=== PATIENT | female | born 1940 | race Caucasian/White ===

== ENCOUNTER → 2017-11-04 | Outpatient (CLI) | payer OTHER ==
[~2017-11-04] MED LIST: AFEDITAB CR30 MG PO; ALOE PO; ARTIFICIAL TEA1 EACH OPHTHALMIC; ASPIRIN81 M2 PO; CO Q-1030 MG PO; CO Q-1050 MG PO; FISH OIL 1,001000 M2 PO; KLOR-CON 88 ME1 PO; LASIX 20 MG TAB20 MG PO; LASIX 40 MG TAB40 M2 PO; LISINOPRIL20 MG PO; NORVASC 5 MG TAB5 MG PO; QUININE SULFAT324 MG PO; TYLENOL325 MG PO; VENTOLIN HFA INH8 GM INH; VITAMIN B COMP1 EACH PO; VITAMIN D1000 UNI1 PO; Vitamin B12 SUBQ; Vitamin D PO; ZIAC 5-6.25 MG1 EACH PO
[2017-11-04 10:30] VITALS: BP 149/44
[2017-11-04 12:30] VITALS: BP 149/39
[2017-11-04 16:52] VITALS: BP 149/39
[2017-11-04 17:30] VITALS: BP 146/50
== END ==
LOC: OPONC 08:21
DX: D50.8 Other iron deficiency anemias (principal)
CPT/HCPCS: 95000; 95001

== ENCOUNTER → 2018-09-21 | Outpatient (CLI) | payer OTHER ==
[2018-09-21 09:40] VITALS: BP 136/68
--- NOTE | 2018-09-21 14:59 | NUR ---
IN FOR INFED INFUSION FOR IRON DEFICIENCY. ADMISSION HISTORY AND ASSESSMENT COMPLETED. IV STARTED IN LEFT HAND AND HAD SOME PAIN WHEN FLUSHING. AFTER READJUSTING IV WAS ABLE TO GIVE TEST DOSE. OBSERVED FOR ONE HOUR WITH NO ADVERSE REACTION NOTED. STARTED FULL DOSE OF INFED AND PATIENT'S IV TOO PAINFUL. REMOVED IV AND IV TEAM PLACED A 20G IV IN LEFT FOREARM. NO FURTHER PAIN WITH NEW IV. TOLERATING INFED WELL.
== END ==
LOC: OPONC 00:18
DX: D50.8 Other iron deficiency anemias (principal)
CPT/HCPCS: 95000; 95001

== ENCOUNTER 2021-07-22 17:13 | Inpatient (IN) | payer OTHER ==
[~2021-07-22] VITALS: Ht 160 cm; Wt 96.4 kg
[2021-07-22 17:16] VITALS: BP 198/77
[2021-07-22 18:48] LABS: HEMATOCRIT 33.1 % (37.0-47.0); HEMOGLOBIN 10.7 gm/dL (12.0-15.0); MCH 24.5 pg (26.0-34.0); MCHC 32.4 g/dL (28.0-37.0); MCV 75.4 fL (80.0-100.0); RBC 4.39 mil/uL (4.20-5.00); RDW 17.1 % (10.5-14.5); WBC 5.7 thou/uL (4.0-11.0)
[2021-07-22 19:01] LABS: CALCIUM 9.5 mg/dL (8.5-10.1)
[2021-07-22 19:14] LABS: ALBUMIN 3.5 g/dL (3.4-5.0); MAGNESIUM 1.5 mg/dL (1.8-2.4); TOTAL BILIRUBIN 1.1 mg/dL (0.2-1.0); TOTAL PROTEIN 7.8 g/dL (6.4-8.2)
[2021-07-22 23:44] LABS: CHOLESTEROL 167 mg/dL (<200); HDL CHOLESTEROL 48 mg/dL (>40); LDL CHOLESTEROL 105 mg/dL (<100); TC:HDL 3.5 Ratio (Not establshd); TRIGLYCERIDE 74 mg/dL (<150); VLDL 15 mg/dL (<40)
[2021-07-22 23:52] VITALS: BP 155/52
[2021-07-22 23:55] LABS: SERUM ASSESSMENT Clear
[2021-07-23] VITALS (8 sets, daily range): BP systolic 148–186; BP diastolic 53–129
[2021-07-23 03:29] LABS: HEMATOCRIT 36.5 % (37.0-47.0); MCH 25.1 pg (26.0-34.0); RBC 4.8 mil/uL (4.20-5.00); RDW 17.4 % (10.5-14.5); WBC 5.1 thou/uL (4.0-11.0)
--- NOTE | 2021-07-23 04:15 | NUR ---
Admission history and assessments completed. Care plan initiated. Patient's gait steady, up adlib without difficulty. Afibrillation rate 40-50 asymptomatic. SBP 150-160. Denies pain, dizziness. Oxygenation optimal on room air. For cardiology consult today. Patient aware of plan of care. Denies pain.
[2021-07-23 04:40] LABS: CALCIUM 9.8 mg/dL (8.5-10.1); CREATININE 1.1 mg/dL (0.6-1.0); POTASSIUM 3.9 mmol/L (3.5-5.1)
[2021-07-23] MEDS ORDERED: SALAGEN5 MG PO (08:03)
[2021-07-23] MEDS ORDERED: COZAAR 50 MG TA50 M1 PO (08:04)
[2021-07-23] MEDS ORDERED: HYDROCHLOROTH12.5 M1 PO (08:05)
[2021-07-23] MEDS ORDERED: ST. JOSEPH ASPI81 MG PO (08:06)
--- NOTE | 2021-07-23 10:46 | 2DMMODE ---
[facility] [place] [address] 2 D/M-MODE ECHOCARDIOGRAM Name: FIGUEROA RILEY Room #: 357-P ADM IN M.R.#: [id number] Admission: 07/22/21 Attend Phys: Andre Talbot MD Discharge: Date of : 42 Report #: [id number] THIS REPORT FOR: cc: Momo Iniguez MD, Christopher B. MD Santiago, Patrick MD [facility] ~ APPROVED REPORT Study performed: 07/23/2021 10:29:55 EXAM: Comprehensive 2D, Doppler, and color-flow Echocardiogram Patient Location: In-Patient Room #: 357 Status: routine BSA: 2.01 HR: 47 bpm BP: 171/85 mmHg Rhythm: Atrial Fibrillation Other Information Study Quality: Good Risk Factors: Cardiac Risk Factors: HTN Indications Atrial Fibrillation Hypertension/HDD Edema 2D Dimensions IVSd: 11.29 (7-11mm) LVOT Diam: 17.45 (18-24mm) LVDd: 42.28 mm PWd: 10.26 (7-11mm) Ascending Ao: 32.40 (22-36mm) LVDs: 33.64 (25-40mm) Left Atrium: 42.61 (27-40mm) Aortic Root: 30.07 mm Volumes Left Atrial Volume (Systole) Single Plane 4CH: 85.45 mL Single Plane 2CH: 189.40 mL Biplane LA Volume: 139.00 mL LA ESV Index: 69.00 mL/m2 Aortic Valve [facility] [place] [address] 2 D/M-MODE ECHOCARDIOGRAM Name: FIGUEROA RILEY Room #: 357-P ADM IN M.R.#: [id number] Admission: 07/22/21 Attend Phys: Andre Talbot, Discharge: Date of : 42 Report #: [id number] AoV Peak Ronal.: 1.94 m/s AO Peak Gr.: 15.13 mmHg LVOT Max P.41 mmHg AO Mean Gr.: 8.71 mmHg LVOT Mean P.36 mmHg AO V2 Mean: 1.40 m/s LVOT Max V: 1.05 m/s AO V2 VTI: 51.01 cm LVOT Mean V: 0.72 m/s ANNIE (VTI): 1.24 cm2 LVOT V1 VTI: 26.37 cm ANNIE Vmax: 1.29 cm2 SV (LVOT): 63.03 mL Mitral Valve IVRT: 36.91 ms Pulmonary Valve PV Peak Ronal.: 1.41 m/s PV Peak Gr.: 7.96 mmHg UT End Vmax: 1.08 m/s Tricuspid Valve TR Peak Ronal.: 2.39 m/s RAP Estimate: 7.00 mmHg TR Peak Gr.: 22.93 mmHg RVSP: 29.00 mmHg Left Ventricle The left ventricle is normal size. There is normal LV segmental wall motion. Borderline concentric left ventricular hypertrophy. Left ventricular systolic function is mildly decreased. LVEF is 45-50%. This study is not technically sufficient to allow evaluation of the LV diastolic function due to atrial fibrillation. Right Ventricle The right ventricle is normal size. Right ventricle is mildly hypokinetic. Atria Left atrium is dilated. Right atrium is dilated. Aortic Valve Aortic valve is trileaflet. Trace to mild aortic regurgitation. There is no aortic valvular stenosis. Mitral Valve The mitral valve is normal in structure. Trace mitral regurgitation. No evidence of mitral valve stenosis. Tricuspid Valve The tricuspid valve is normal in structure. Trace tricuspid regurgitation. PAP [address] [address] 2 D/M-MODE ECHOCARDIOGRAM Name: FIGUEROA RILEY Room #: 357-P [facility] IN .R.#: [id number] Admission: 07/22/21 Attend Phys: Andre Talbot, Discharge: Date of : 42 Report #: [id number] Pulmonic Valve The pulmonary valve is normal in structure. Trace pulmonic regurgitation. Great Vessels The aortic root is normal in size. IVC is normal in size and collapses >50% with inspiration. Pericardium There is no pericardial effusion. There is no pleural effusion. <Conclusion> Normal left ventricle size with borderline concentric hypertrophy Ejection fraction of 4550 % Normal right ventricle size/function Moderate biatrial enlargement Trace aortic/mitral valve insufficiency Moderate mitral annular calcification Trace tricuspid valve insufficiency Pulmonary systolic pressure estimated 29 mmHg No pericardial effusion Normal aortic root size Study performed in atrial fibrillation <ELECTRONICALLY SIGNED> By: Haider Britton MD, FACC 07/23/21 1046 45 104 Haider Britton MD, FACC /INF
--- NOTE | 2021-07-23 11:11 | NUR ---
CARE ASSUMED THIS AM, PT ALERT AND ORIENTED X4, DENIES ANY CHEST PAIN. ON ROOM AIR. UP AD JOSE TO BATHROOM. ECHO COMPLETED. DR. CUELLAR PAGED AND PT POLOCARPINE RESTARTED. PT DAUGHTER UPDATED ABOUT CARE, DENIES ANY NEEDS. WILL COTNINUE TO MONITOR
--- NOTE | 2021-07-23 13:24 | EKG ---
[address] [address] ELECTROCARDIOGRAM REPORT Name: FIGUEROA RILEY Room #: 357-P ADM IN M.R.#: [id number] Admission: 07/22/21 Attend Phys: Andre Talbot MD Discharge: Date of : 42 Report #: [id number] [facility] ED Test Date: 2021-07-22 Test Time: 18:08:36 Pat Name: FIGUEROA RILEY Department: Room: 357 Gender: F Dough Mixer Operator: ITALIA : 1940 Requested By: Almita Gutierrez Order Number: [id number] MD: Haider Britton Measurements Intervals [place] Rate: 58 P: AR: QRS: -10 QRSD: 87 T: 51 QT: 463 QTc: 455 Interpretive Statements Atrial fibrillation Abnormal Q suggests anterior infarct Inferior infarct, old Anteroseptal infarct, age indeterminate Compared to ECG 11/06/2013 12:56:17 Myocardial infarct finding now present Sinus rhythm no longer present Sinus arrhythmia no longer present Ventricular premature complex(es) no longer present Electronically Signed On 07-23-2021 13:24:28 CHILDREN'[employer] TUT[employer] NURSERY by Haider Britton [email or web address] <ELECTRONICALLY SIGNED> By: Haider Britton MD, [facility] 07/23/21 1324 180 07 Haider Britton MD, [facility] /EPI
[2021-07-24 01:06] LABS: GLYCOHEMOGLOBIN (HGB A1C) 5.8 % (4.8-5.6)
[2021-07-24 03:25] VITALS: BP 168/84
--- NOTE | 2021-07-24 04:26 | NUR ---
Slept intermittently during the night. Refused to take iron pill at this time. She would like to talk to the doctor about it today. C/O headache at HS , tylenol given with good relief. Kept NPO for procedure today.
[2021-07-24 07:10] VITALS: BP 150/80
--- NOTE | 2021-07-24 09:38 | HC ---
[facility] [place] [address] CONSULTATION Name: FIGUEROA RILEY Room #: 357-P ADM IN M.R.#: [id number] Admission: 07/22/21 Attend Phys: Andre Talbot MD Discharge: Date of : 42 Report #: [id number] THIS REPORT FOR: cc: Momo Iniguez MD, Christopher B. MD Khosla, Parveen K. MD ~ DATE OF SERVICE: 07/23/2021 HISTORY OF PRESENT ILLNESS: An 81-year-old female patient who was seen by me for speech difficulty. The patient is difficult to evaluate. She gives a history that on Thursday, she had an episode where she could not think about the word to express herself. It lasted about 20 minutes without any motor deficit and then resolved. She has a longstanding problem with speaking because she has Sjogren syndrome and her mouth is always dry. That has been happening since then also, but the episode where she could not think about the word is new and has not happened before. REVIEW OF SYSTEMS: Pretty extensive. She has a history of Sjogren syndrome, hypertension, congestive heart failure, iron deficiency anemia. She is being followed by Cardiology. She has lower extremity edema, cold intolerance. Fatigue, nosebleeds. There was some history of headache, but that is not prominent. She has a history of cholecystectomy, hysterectomy, bilateral cataract extraction. She has atrial fibrillation, hyponatremia. She denies any dermatological, psychiatric, throat, allergic symptom, which is new. Denies any musculoskeletal or symptoms. She does have a history of uncontrolled hypertension and prior history of smoking. PAST MEDICAL HISTORY: Negative for stroke or TIA. FAMILY HISTORY: Positive for stroke, but late onset of the strokes. SOCIAL HISTORY: She used to smoke. PHYSICAL EXAMINATION: NEUROLOGIC: The patient's examination indicate that the patient is alert, responsive, able to follow simple and complex command. She was able to speak. Her mouth was dry and sometimes she has difficulty expressing herself. She took a sip of water and then she was able to talk without much difficulty. Cranial nerve examination appear unremarkable. Neuromuscular examination is difficult because she has edema in the lower extremities, but her position sense is intact and she moves all 4 extremities. Cerebellar sign does not appear to be present in the upper extremities. I could not look at the patient's fundus. There is no meningeal sign. There is no carotid bruit. There is no thyroid mass. She has edema. Pulses are difficult to feel because of edema. CARDIAC: She is being followed for atrial fibrillation. No respiratory difficulty. [address] [address] CONSULTATION Name: FIGUEROA RILEY Room #: [address] [place] [address] IN M.R.#: [id number] Admission: 07/22/21 Attend Phys: Andre Talbot MD Discharge: Date of : 42 Report #: [id number] VITAL SIGNS: Blood pressure is 172/95, respiration rate is 18, pulse is 60, temperature is 96.5. LABORATORY DATA: White count is 5.1, hemoglobin is 12. She had a carotid Doppler as well as head CTA that is unremarkable. Her MRI is pending. IMPRESSION: I think it is desirable to do the MRI as it is ordered because she has Sjogren and she also has atrial fibrillation. She is predisposed to have developed a stroke and MRI is needed to find out whether she had a stroke or not. If she did not have a stroke, the main management is going to be the management of systemic problems, especially atrial fibrillation. If stroke is not there, then we need to address the etiology and what to do about that. She is already on anticoagulation and therefore, there is no need to do any antiplatelet therapy from a neurological perspective. She does have low sodium and that may contribute to her symptoms. We will review the MRI and follow up tomorrow. Thank you very much for this referral. <ELECTRONICALLY SIGNED> By: Prince Membreno MD 07/24/21 0938 1920 0015 Prince Membreno MD /nt
[2021-07-24 11:07] VITALS: BP 141/63
[2021-07-24 14:58] LABS: ABSOLUTE NEUTROPHILS 5.4 thou/uL (1.4-8.2); BASOPHILS 0.5 % (0.0-2.0); HEMATOCRIT 32.6 % (37.0-47.0); HEMOGLOBIN 10.4 gm/dL (12.0-15.0); LYMPHOCYTES 7.9 % (24.0-44.0); MCH 24.2 pg (26.0-34.0); MCHC 32.1 g/dL (28.0-37.0); MCV 75.5 fL (80.0-100.0); MONOCYTES 7.2 % (1.0-8.0); PLATELET COUNT 350 thou/uL (150-400); POLYS 84.4 % (36.0-66.0); RBC 4.31 mil/uL (4.20-5.00); RDW 17.4 % (10.5-14.5); WBC 6.4 thou/uL (4.0-11.0)
[2021-07-24 15:12] LABS: ALBUMIN 3.5 g/dL (3.4-5.0); CALCIUM 9.6 mg/dL (8.5-10.1); POTASSIUM 3.7 mmol/L (3.5-5.1); TOTAL BILIRUBIN 1.2 mg/dL (0.2-1.0); TOTAL PROTEIN 7.6 g/dL (6.4-8.2)
--- NOTE | 2021-07-24 15:44 | NUR ---
INITIAL ASSESSMENT: Received consult. SW reviewed chart and spoke with nursing and attending physician. Pt was admitted from home due to hypertension/CHF. Neuro consulted. MRI ordered for today due to change in mental status. PT/OT evals ordered today to assist with recommendations for discharge needs. Per chart, pt is alert/orientated and lives at home. Pt's PCP is Dr. Nicolas Iniguez. Will need insurance authorization for post-acute placement. SW to follow up with pt/family to discuss discharge planning.
[2021-07-24 16:59] VITALS: BP 133/61
--- NOTE | 2021-07-24 17:45 | NUR ---
CARE ASSUMED THIS AM, PT WAS ALERT AND ORIENTED X4, BUYT SEEMED CONFUSE AND NOT SELF UNLIKE YESTERDAY. PT DAUGHTER NOTICED THAT WELL. SEEMED RESTLESS AND SLEEPY AND SENSITIVE TO ANY PAIN. PT WASNT ABLE TO GET STRESS TEST DONE DUE TO RIGHT ARM PAIN, AND UNABLE TO LIE STILL. DR. CERVANTES MADE AWARE OF PT NEURO SYMPTOMS. MRI DONE. PT SLEPT MOST OF THE DAY. DAUGHTER HERE, UPDATED ABOUT CARE, SPOKE TO THE DOCTORS WELL. FALL PRECAUTIONS IN PLACE. DENIES ANY NEEDS WILL CONTINUE.
[2021-07-24 21:36] VITALS: BP 149/125
[2021-07-25 03:27] VITALS: BP 146/65
[2021-07-25 06:56] LABS: HEMATOCRIT 32.2 % (37.0-47.0); HEMOGLOBIN 10.4 gm/dL (12.0-15.0); MCH 24.4 pg (26.0-34.0); MCHC 32.2 g/dL (28.0-37.0); MCV 75.7 fL (80.0-100.0); RBC 4.25 mil/uL (4.20-5.00); RDW 16.9 % (10.5-14.5); WBC 5.2 thou/uL (4.0-11.0)
[2021-07-25 07:05] LABS: CALCIUM 9.2 mg/dL (8.5-10.1); CREATININE 1.3 mg/dL (0.6-1.0); POTASSIUM 3.2 mmol/L (3.5-5.1)
[2021-07-25 07:49] VITALS: BP 137/56
--- NOTE | 2021-07-25 14:36 | NUR ---
SW reviewed chart and spoke with nursing and attending physician. 5N consult ordered. Pt is too high level for inpt acute rehab. Recommendation made for pt to go home with HH. Pt lives at home alone. Stair glide in place. Pt has family support. SW to discuss HH providers with pt and family at a later time. SW is following to assist as needed with discharge planning.
[2021-07-25 15:16] VITALS: BP 115/52
[2021-07-25 19:19] VITALS: BP 97/43
[2021-07-26 04:35] VITALS: BP 129/54
[2021-07-26 05:58] LABS: HEMATOCRIT 30.8 % (37.0-47.0); HEMOGLOBIN 9.8 gm/dL (12.0-15.0); MCH 24.2 pg (26.0-34.0); MCHC 31.9 g/dL (28.0-37.0); MCV 75.8 fL (80.0-100.0); RBC 4.07 mil/uL (4.20-5.00); RDW 17.5 % (10.5-14.5); WBC 4.6 thou/uL (4.0-11.0)
[2021-07-26 06:10] LABS: CALCIUM 9.1 mg/dL (8.5-10.1); CREATININE 1.4 mg/dL (0.6-1.0); MAGNESIUM 2.2 mg/dL (1.8-2.4); POTASSIUM 3.1 mmol/L (3.5-5.1)
--- NOTE | 2021-07-26 06:24 | NUR ---
PT MAKING PROGRESS TOWARDS GOALS. REPORTING PAIN IN BACK 03/02. TYLENOL GIVEN WITH MINOR REDUCTION IN PAIN RATING. HEATING PAD GIVEN WITH PT REPORTING SLIGHTLY MORE PAIN RELIEF. SEE CHARTING.
[2021-07-26 07:10] VITALS: BP 147/78
[2021-07-26 11:04] VITALS: BP 108/44
[2021-07-26 13:34] VITALS: BP 108/44
--- NOTE | 2021-07-26 13:35 | NUR ---
LOVE reviewed chart and spoke with nursing and attending physician. Pt is progressing towards goals for discharge. Discharge home is anticipated for tomorrow. LOVE met with pt and dtr, Suze, at bedside. Introduced role of LOVE. Pt is alert/orientated x 4. Pt and dtr known to LOVE from pt's spouse hospitalizations. Pt's spouse recently . Pt lives at home alone. Prior to admission, pt was independent with ADLs. No use of DME. Pt has DME if needed at home. Pt has good family support. No hx of services or post-acute placement. Pt's PCP is Dr. Nicolas Iniguez. LOVE discussed discharge plan. Pt states she feels strong enough to return home. LOVE provided HH list fo review. Pt and dtr are agreeable with HH. No preference of HH provider. LOVE verified pt's home address and phone number. LOVE notified Suzanne of new referral. Contact info for HH placed in pt's discharge summary. Final discharge ppwk will need to be faxed to HH. Pt's family will be able to provide transportation home. LOVE is following to assist as needed with discharge planning. [facility]---
[2021-07-26 15:07] VITALS: BP 158/65
--- NOTE | 2021-07-26 16:56 | NUR ---
assumed care of pt at 0700. pt aox4 no acute distress. breathing omfortably on room air. voicing no concerns. socializing with family at bedside. transitioned to PO anticoagulants. anticipate d/c soon.
[2021-07-26 19:10] VITALS: BP 146/73
[2021-07-27 04:30] VITALS: BP 141/75
[2021-07-27 07:01] VITALS: BP 165/69
[2021-07-27 11:00] VITALS: BP 147/75
[2021-07-27] MEDS ORDERED: LIPITOR 20 MG T20 M1 PO (14:18)
[2021-07-27] MEDS ORDERED: ELIQUIS5 MG PO (14:18)
[2021-07-27] MEDS ORDERED: COREG6.25 MG PO (14:18)
[2021-07-27] MEDS ORDERED: BENICAR40 MG PO (14:19)
[2021-07-27 15:03] VITALS: BP 160/78
[2021-07-27 15:48] VITALS: BP 108/44
--- NOTE | 2021-07-27 17:08 | NUR ---
DISCHARGE ORDER IN. IV AND TELE D/C . ALL BELONGINGS WITH PT. PT AWARE OF OUT PT APPOINTMENT WITH PEDODONTIST. NEW MED WENT THROUGH WITH PT. DENIES ANY QUEETIONS. PT DAUGHTER WITH HER. TAKEN DOWN VIA WHEELCHAIR.
== END 2021-07-27 17:19 | disposition home health service (06) | DRG 291 ==
LOC: ER 17:13 → 3W 20:59 → EROBS 20:59 → 3W 07-23 00:07
PROVIDERS: Hospitalist; Nurse Practitioner; Nurse Practitioner Family; ADMIT Internal Medicine; ATTEND Internal Medicine
DX: I11.0 Hypertensive heart disease with heart failure (principal); I50.33 Acute on chronic diastolic (congestive) heart failure; E87.1 Hypo-osmolality and hyponatremia; G93.40 Encephalopathy, unspecified; I48.91 Unspecified atrial fibrillation; Z20.822 Contact with and (suspected) exposure to COVID-19; E66.9 Obesity, unspecified; Z66 Do not resuscitate; E83.42 Hypomagnesemia; M35.00 Sjogren syndrome, unspecified; D50.9 Iron deficiency anemia, unspecified; G89.29 Other chronic pain; F32.9 Major depressive disorder, single episode, unspecified; F41.9 Anxiety disorder, unspecified; T50.2X5A Adverse effect of carbonic-anhydrase inhibitors, benzothiadiazides and other diuretics, initial encounter; Y92.89 Other specified places as the place of occurrence of the external cause; Z90.49 Acquired absence of other specified parts of digestive tract; Z90.710 Acquired absence of both cervix and uterus; Z88.6 Allergy status to analgesic agent; Z82.3 Family history of stroke; Z68.37 Body mass index [BMI] 37.0-37.9, adult; Z98.42 Cataract extraction status, left eye; Z98.41 Cataract extraction status, right eye; Z87.891 Personal history of nicotine dependence; Z79.899 Other long term (current) drug therapy
CPT/HCPCS: 10879

== ENCOUNTER → 2021-08-13 | Outpatient (CLI) | payer OTHER ==
[~2021-08-13] MED LIST changes: +BENICAR40 MG PO; +COREG6.25 MG PO; +COZAAR 50 MG TA50 M1 PO; +ELIQUIS5 MG PO; +HYDROCHLOROTH12.5 M1 PO; +LIPITOR 20 MG T20 M1 PO; +SALAGEN5 MG PO; +ST. JOSEPH ASPI81 MG PO
== END ==
LOC: SJCVCIMAG 09:36
PROVIDERS: ATTEND Internal Medicine
DX: I48.91 Unspecified atrial fibrillation (principal); F41.9 Anxiety disorder, unspecified; F32.9 Major depressive disorder, single episode, unspecified; I50.9 Heart failure, unspecified; Z87.891 Personal history of nicotine dependence; Z88.5 Allergy status to narcotic agent; Z79.82 Long term (current) use of aspirin; Z79.899 Other long term (current) drug therapy

== ENCOUNTER 2021-10-03 10:55 | Observation (INO) | payer MEDICARE ==
[~2021-10-03] VITALS: Ht 152.4 cm; Wt 92.3 kg
--- NOTE | ~2021-10-03 | P ---
[facility] [place] [address] PROCEDURE REPORT Name: FIGUEROA RILEY Room #: 214-P [facility] Vicky Llanos#: [id number] Admission: 10/03/21 Attend Phys: Kwasi Luis Discharge: 10/04/21 Date of : 42 Report #: [id number] THIS REPORT FOR: cc: Momo Iniguez MD, Christopher B. MD Lammoglia,Kwasi Irizarry MD ~ DATE OF SERVICE: 10/04/2021 PROCEDURE INDICATION: Symptomatic paroxysmal atrial fibrillation. PROCEDURES PERFORMED: 1. Electrical cardioversion. 2. Supervision of conscious sedation. BRIEF DESCRIPTION OF PROCEDURE: The patient was brought to the cardiac catheterization laboratory, prepped and hold. Continuous oximetric and electrocardiographic monitoring was performed throughout the procedure. After informed consent was obtained, AP pads were placed on the patient's chest. Versed 2 mg and 12.5 of IV Demerol were given for sedation. A synchronized biphasic shock at 200 joules was performed with 20 pounds of pressure exerted on the anterior pads without complications. The patient's rhythm converted to sinus rhythm with a first-degree AV block. The patient tolerated the procedure well. COMPLICATIONS: None. By: [id number] Kwasi Luis MD /nt
[2021-10-03 10:57] VITALS: BP 133/60
[2021-10-03] MEDS ORDERED: CEVIMELINE HCL30 MG PO (11:39)
[2021-10-03] MEDS ORDERED: FOLIC ACID1 MG PO (11:40)
[2021-10-03 12:23] VITALS: BP 143/73
[2021-10-03 15:00] VITALS: BP 157/61
[2021-10-03 19:45] VITALS: BP 152/57
--- NOTE | 2021-10-03 21:19 | NUR ---
NURSING NOTE: PT ALERT AND ORIENTED X4, MOVES ALL EXTREMITIES AND FOLLOWS COMMANDS. DENIES PAIN AT PRESENT. CURRENTLY IN AFIB ON THE MONITOR IN THE 40'S-60'S. UP WITH SBA X1 TO BR. GAIT STEADY. EDUCATED ON NPO AFTER MIDNIGHT FOR POSSIBLE CARDIOVERSION IN THE MORNING. CURRENTLY RESTING WITH EYES CLOSED, RESP EVEN AND NON LABORED. ALL VS AND ASSESSMENTS CHARTED. WILL CONTINUE TO MONITOR.
[2021-10-04 04:00] VITALS: BP 155/53
[2021-10-04 07:36] VITALS: BP 155/43
[2021-10-04] MEDS ORDERED: AMIODARONE HCL400 MG PO (13:36)
[2021-10-04 13:55] VITALS: BP 155/43
[2021-10-04 14:05] VITALS: BP 187/80
--- NOTE | 2021-10-04 15:33 | EKG ---
[address] [place] [address] ELECTROCARDIOGRAM REPORT Name: FIGUEROA RILEY Room #: 214-P [facility]..#: [id number] Admission: 10/03/21 Attend Phys: Kwasi Luis Discharge: Date of : 42 Report #: [id number] [facility] ED Test Date: 2021-10-03 Test Time: 11:04:28 Pat Name: FIGUEROA RILEY Department: Room: 214 Gender: F Loss Claim Clerk: yumiko : 1940 Requested By: Hima Valera Order Number: [id number] MD: Haider Britton Measurements Intervals [place] Rate: 60 P: [place]: QRS: -40 QRSD: 82 T: 62 QT: 408 QTc: 408 Interpretive Statements Atrial fibrillation Anterior infarct, old Compared to ECG 07/22/2021 18:08:36 Left anterior fascicular block now present Myocardial infarct finding still present Electronically Signed On 10-04-2021 15:33:09 HY[employer]AULICS ENGINEER by Haider Britton [email or web address] <ELECTRONICALLY SIGNED> By: Haider Britton MD, [facility] 10/04/21 1533 03 03 Haider Britton MD, FACC /EPI
--- NOTE | 2021-10-04 15:33 | EKG ---
[address] [place] [address] ELECTROCARDIOGRAM REPORT Name: FIGUEROA RILEY Room #: 214-P [facility]..#: [id number] Admission: 10/03/21 Attend Phys: Kwasi Luis Discharge: Date of : 42 Report #: [id number] [facility] Test Date: 2021-10-03 Test Time: 16:56:21 Pat Name: FIGUEROA RILEY Department: Room: 214 P Gender: F Compensation Associate: LOLA : 1940 Requested By: Kwasi Luis Order Number: [id number] MD: Haider Britton Measurements Intervals [place] Rate: 63 P: LA: QRS: -8 QRSD: 89 T: 40 QT: 425 QTc: 436 Interpretive Statements Atrial fibrillation Borderline low voltage, extremity leads Probable anteroseptal infarct, old Compared to ECG 10/03/2021 11:04:28 Left anterior fascicular block no longer present Myocardial infarct finding still present Electronically Signed On 10-04-2021 15:33:16 BARTENDER by Haider Britton [email or web address] <ELECTRONICALLY SIGNED> By: Haider Britton MD, [facility] 10/04/21 1533 1656 1656 Haider Britton MD, [facility] /EPI
--- NOTE | 2021-10-04 15:34 | EKG ---
[address] [address] ELECTROCARDIOGRAM REPORT Name: FIGUEROA RILEY Room #: 214-P [facility]..#: [id number] Admission: 10/03/21 Attend Phys: Kwasi Luis Discharge: Date of : 42 Report #: [id number] [facility] Test Date: 2021-10-04 Test Time: 13:20:36 Pat Name: FIGUEROA RILEY Department: Room: 214 P Gender: F Mill Work: LOLA : 1940 Requested By: Kwasi Luis Order Number: [id number] MD: Haider Britton Measurements Intervals [place] Rate: 65 P: 25 MN: 282 QRS: -6 QRSD: 91 T: 34 QT: 420 QTc: 437 Interpretive Statements Sinus rhythm Prolonged [place] interval Low voltage, extremity leads Probable anteroseptal infarct, old Compared to ECG 10/03/2021 16:56:21 First degree AV block now present Atrial fibrillation no longer present Myocardial infarct finding still present Electronically Signed On 10-04-2021 15:34:40 BISCUIT PACKER by Haider Britton [email or web address] <ELECTRONICALLY SIGNED> By: Haider Britton MD, FAC 10/04/21 1534 1320 1320 Haider Britton MD, [facility] /EPI
== END 2021-10-04 17:36 | disposition home or self-care (01) ==
LOC: ER 10:55 → EROBS 11:53 → 2N 13:18
PROVIDERS: ADMIT Internal Medicine; ATTEND Internal Medicine
DX: I48.0 Paroxysmal atrial fibrillation (principal); Z20.822 Contact with and (suspected) exposure to COVID-19; I11.0 Hypertensive heart disease with heart failure; I50.9 Heart failure, unspecified; D50.0 Iron deficiency anemia secondary to blood loss (chronic); Z90.49 Acquired absence of other specified parts of digestive tract; Z98.890 Other specified postprocedural states; Z90.710 Acquired absence of both cervix and uterus; Z79.01 Long term (current) use of anticoagulants; Z88.5 Allergy status to narcotic agent

== ENCOUNTER 2021-10-21 12:41 | Inpatient (IN) | payer MEDICARE ==
[~2021-10-21] VITALS: Ht 160 cm; Wt 92.1 kg
--- NOTE | ~2021-10-21 | EKG ---
[place] [address] [place] [address] ELECTROCARDIOGRAM REPORT Name: FIGUEROA RILEY Room #: [facility] M.R.#: [id number] Admission: Attend Phys: Discharge: Date of : 42 Report #: [id number] [facility] ED Test Date: 2021-10-21 Test Time: 12:47:40 Pat Name: FIGUEROA RILEY Department: Room: Gender: F Laborer [place]bark: CORBY : 1940 Requested By: Kayley Barroso Order Number: [id number] MD: Measurements Intervals [place] Rate: 62 P: 30 [place]: 277 QRS: -31 QRSD: 94 T: 49 QT: 437 QTc: 444 Interpretive Statements Sinus rhythm Prolonged [place] interval Left axis deviation Anteroseptal infarct, old Compared to ECG 10/04/2021 13:20:36 Left-axis deviation now present Myocardial infarct finding still present [email or web address] By: 1247 1247 Casey Peña MD /EPI
--- NOTE | ~2021-10-21 | EMS ---
[address] [address] EMS Patient Care Report Name: FIGUEROA RILEY Room #: 210-P ADM IN M.R.#: [id number] Admission: 10/21/21 Attend Phys: David William Discharge: Date of : 42 Report #: [id number] THIS REPORT FOR: //name// Report Transmitted: 10/21/2021 21:07 EMS Care Summary [facility] Incident [phone] @ 10/21/2021 11:53 Incident Location [facility] [address] [place] [address] Patient GIRISH RILEY Female, 81 Years 1940 Patient Address [address] [place] [address] Patient History Cardiac Condition - Other, Patient Allergies No known allergies, Patient Medications Carvedilol, Amiodarone, Folic acid, Atorvastatin, Eliquis, Chief Complaint syncope Disposition Transported No Lights/[place] [facility] Reason Unconscious/Fainting Transported To [facility] Narrative Family states pt was getting ready for doctor's appointment when she felt light headed. Family states pt was seated at table. Family states helped pt down to floor. Family states pt did not fall. Family states pt had high blood pressure yesterday. Family states pt's BP was 101 systolic. Family states pt was [address] [address] EMS Patient Care Report Name: FIGUEROA RILEY Room #: 210-P ADM IN M.R.#: [id number] Admission: 10/21/21 Attend Phys: David William Discharge: Date of : 42 Report #: [id number] hospitalized earlier this month. Family states pt was cardioverted. Pt c/o of feeling light headed and dizzy. Pt denies any chest pain or discomfort. Pt denies any difficulty breathing. Pt is nauseous. Pt states she was not feeling well yesterday. Pt states she was able to control her BP w/ prescribed medication. Pt states she was hospitalized while doctor's adjusted medication for her a fib and hypertension.Pt states she has not been diagnosed w/ a 1st degree block. Pt was calm and cooperative. EMS noted cinncinati stroke scale to be negative. EMS noted swelling in lower extremities; pt states is baseline. EMS noted pt's orthostatic's to be negative. Pt found supine on floor of kitchen of [facility] upon arrival, alert and oriented. Airway patent, breathing adequate, pulses present. Physical assessment as noted. Treat pt for syncope and transport to ED. [place] [employer] [facility] dispatched to address on 81 yo female w/ noted hx, suffering from syncope. Arrived on scene to find pt on floor. Primary assessment performed. Baseline vitals obtained, cardiac monitoring initiated. 12-lead obtained. Oxygen administered. Assisted pt to seated position, w/o incident. Carried pt to cot, w/o incident. Secured pt to cot and moved to ambulance. Vascular access obtained. Transported to [facility], w/o incident. Pt and vitals monitored en route. Arrived at destination and moved pt to ER. Transferred pt to bed, using sheet, w/ assistance from staff, w/o incident. Report given and care transferred to ED RN. Pt left in stable condition. [employer] [facility] cleared. Initial Vitals @12:04Glucose: 113, @12:06MI Suspected: false @12:35 @12:32P: 58,BP: 182/137,SpO2: 99, @12:27MI Suspected: false @12:36P: 57,BP: 198/166,SpO2: 99, @12:28P: 56,BP: 163/98,SpO2: 97, @12:06P: 60,SpO2: 95, @12:21P: 115,SpO2: 99, @12:06P: 61,SpO2: 95, @12:10P: 58,R: 20,BP: 178/87,Pain: 0/10,GCS: 15,Revised Trauma: 12, @12:05P: 61,R: 16,BP: 184/82,Pain: 0/10,GCS: 15,Revised Trauma: 12, @12:03P: 61,R: 16,Pain: 0/10,GCS: 15,SpO2: 92, Impression Syncope / Fainting [facility] [address] [place] [address] EMS Patient Care Report Name: FIGUEROA RILEY Room #: 210-P ADM IN M.R.#: [id number] Admission: 10/21/21 Attend Phys: David William Discharge: Date of : 42 Report #: [id number] Procedures @12:00 ALS Assessment Response: UnchangedSucceeded @12:07 Oxygen FlowRate: 3 Device: Nasal Cannula (NC) Response: UnchangedSucceeded @12:21 IV Therapy - Saline Lock cc (20 ga) Site: Forearm-Left Response: UnchangedFailed @12:28 IV Therapy - Normal Saline (.9% NaCl) 350cc (20 ga) Site: Hand-Right Response: UnchangedSucceeded @12:03 3-Lead ECG Response: UnchangedSucceeded @12:35 12-Lead ECG Response: UnchangedSucceeded @12:27 12-Lead ECG Response: UnchangedSucceeded @12:06 12-Lead ECG Response: UnchangedSucceeded @12:16 Ondansetron - 4 Milligrams (mg) - Buccal Response: Improved Timeline 11:52,Call Received 11:52,Psap Call 11:53,Dispatched 11:55,En Route 11:58,Initial Responder On Scene 11:59,On Scene 12:00,At Patient 12:00,ALS Assessment,Response: UnchangedSucceeded, 12:03,BP: / M,PULSE: 61,RR: 16 R,SPO2: 92 Ox,ETCO2: ,BG: ,PAIN: 0,GCS: 15, 12:03,3-Lead ECG,Response: UnchangedSucceeded, 12:04,BP: / M,PULSE: ,RR: R,SPO2: Ox,ETCO2: ,B,PAIN: ,GCS: , 12:05,BP: 184/82 M,PULSE: 61,RR: 16 R,SPO2: Ox,ETCO2: ,BG: ,PAIN: 0,GCS: 15, 12:06,BP: / M,PULSE: 61,RR: R,SPO2: 95 Ox,ETCO2: ,BG: ,PAIN: ,GCS: , 12:06,12-Lead ECG,Response: UnchangedSucceeded, 12:06,BP: / M,PULSE: ,RR: R,SPO2: Ox,ETCO2: ,BG: ,PAIN: ,GCS: , 12:06,BP: / M,PULSE: 60,RR: R,SPO2: 95 Ox,ETCO2: ,BG: ,PAIN: ,GCS: , 12:07,Oxygen FlowRate: 3 Device: Nasal Cannula (NC) Response: UnchangedSucceeded, 12:10,BP: 178/87 M,PULSE: 58,RR: 20 R,SPO2: Ox,ETCO2: ,BG: ,PAIN: 0,GCS: 15, 12:16,Ondansetron - 4 Milligrams (mg) - Buccal,Response: Improved 12:19,Depart Scene 12:21,BP: / M,PULSE: 115,RR: R,SPO2: 99 Ox,ETCO2: ,BG: ,PAIN: ,GCS: , 12:21,IV Therapy - Saline Lock cc 20 ga Site: Forearm-Left,Response: UnchangedFailed, 12:27,12-Lead ECG,Response: UnchangedSucceeded, 12:27,BP: / M,PULSE: ,RR: R,SPO2: Ox,ETCO2: ,BG: ,PAIN: ,GCS: , 12:28,BP: 163/98 M,PULSE: 56,RR: R,SPO2: 97 Ox,ETCO2: ,BG: ,PAIN: ,GCS: , 12:28,IV Therapy - Normal Saline (.9% NaCl) 350cc 20 ga Site: Hand-Right,Response: UnchangedSucceeded, [facility] [address] [place] [address] EMS Patient Care Report Name: FIGUEROA RILEY Room #: 210-P [facility] IN M.R.#: [id number] Admission: 10/21/21 Attend Phys: David William Discharge: Date of : 42 Report #: [id number] 12:32,BP: 182/137 M,PULSE: 58,RR: R,SPO2: 99 Ox,ETCO2: ,BG: ,PAIN: ,GCS: , 12:35,12-Lead ECG,Response: UnchangedSucceeded, 12:35,BP: / M,PULSE: ,RR: R,SPO2: Ox,ETCO2: ,BG: ,PAIN: ,GCS: , 12:36,BP: 198/166 M,PULSE: 57,RR: R,SPO2: 99 Ox,ETCO2: ,BG: ,PAIN: ,GCS: , 12:37,At Destination 12:46,Transfer Patient 12:58,Call Closed Disclaimer [email or web address] Copyright 2021 [employer] This EMS Care Summary contains data elements from the applicable legal record (which may be displayed differently). It is designed to provide pertinent information for the following purposes: continuity of care, clinical quality, and state data reporting. The complete legal record is available to ED staff and administrators of the receiving hospital in [employer]s Patient Tracker. All data is provided "as is."
[~2021-10-21 12:41] MED LIST changes: +AMIODARONE HCL400 MG PO; +CEVIMELINE HCL30 MG PO; +FOLIC ACID1 MG PO
[2021-10-21 13:11] LABS: EOSINOPHILS 0.6 % (0.0-3.0); HEMATOCRIT 29.5 % (37.0-47.0); HEMOGLOBIN 9.5 gm/dL (12.0-15.0); LYMPHOCYTES 9.3 % (24.0-44.0); MCH 24.2 pg (26.0-34.0); MCHC 32.3 g/dL (28.0-37.0); MONOCYTES 5.7 % (1.0-8.0); PLATELET COUNT 367 thou/uL (150-400); POLYS 83.4 % (36.0-66.0); RBC 3.93 mil/uL (4.20-5.00); RDW 19.2 % (10.5-14.5)
[2021-10-21 13:21] LABS: CALCIUM 9.4 mg/dL (8.5-10.1); CREATININE 0.9 mg/dL (0.6-1.0); POTASSIUM 4.7 mmol/L (3.5-5.1)
[2021-10-21 13:31] LABS: TOTAL BILIRUBIN 0.7 mg/dL (0.2-1.0); TOTAL PROTEIN 7.2 g/dL (6.4-8.2)
[2021-10-21 14:15] LABS: ANISOCYTOSIS 2+
[2021-10-21 14:16] LABS: HYPOCHROMASIA 1+; POIKILOCYTOSIS 1+; POLYCHROMASIA 1+
[2021-10-21 14:26] LABS: URINE BILIRUBIN NEGATIVE (Negative); URINE BLOOD NEGATIVE (Negative); URINE CLARITY CLEAR; URINE COLOR YELLOW; URINE GLUCOSE-RANDOM* NEGATIVE (Negative); URINE KETONES NEGATIVE (Negative); URINE LEUKOCYTES-REFLEX TRACE (Negative); URINE NITRITE-REFLEX NEGATIVE (Negative); URINE PROTEIN (DIPSTICK) NEGATIVE (Negative); URINE UROBILINOGEN 0.2 E.U./dl (0.2-1.0)
[2021-10-21 20:07] VITALS: BP 163/53
[2021-10-21 20:37] VITALS: BP 193/86
--- NOTE | 2021-10-21 21:49 | NUR ---
PT ADMITTED FROM ER IN STABLE CONDITION. BP ELEVATED UPON ARRIVAL WILL RECHECK. INSTRUCTED PT ON FALL PRECAUTIONS.
== END 2021-10-22 | disposition home health service (06) | DRG 641 ==
LOC: ER 12:41 → EROBS 14:21 → 2N 20:08
PROVIDERS: Student in an Organized Health Care Education/Training Program; ADMIT Hospitalist; ATTEND Hospitalist
DX: E87.1 Hypo-osmolality and hyponatremia (principal); I50.9 Heart failure, unspecified; I48.91 Unspecified atrial fibrillation; E66.9 Obesity, unspecified; M35.00 Sjogren syndrome, unspecified; D50.9 Iron deficiency anemia, unspecified; F32.9 Major depressive disorder, single episode, unspecified; F41.9 Anxiety disorder, unspecified; R60.1 Generalized edema; I11.0 Hypertensive heart disease with heart failure; Z20.822 Contact with and (suspected) exposure to COVID-19; E87.70 Fluid overload, unspecified; I95.9 Hypotension, unspecified; Z90.49 Acquired absence of other specified parts of digestive tract; Z90.710 Acquired absence of both cervix and uterus; Z98.49 Cataract extraction status, unspecified eye; Z88.6 Allergy status to analgesic agent; Z68.36 Body mass index [BMI] 36.0-36.9, adult; Z87.891 Personal history of nicotine dependence
CPT/HCPCS: 10081